=== PATIENT | female | born 1975 | race Caucasian/White ===

== ENCOUNTER → 2023-07-04 15:30 | Outpatient (BNVA) | payer BC, MEDICAID, SELFPAY | PROVIDERS: Family Provider Physician Assistant Medical; PCP Nurse Practitioner; Visit Provider Nurse Practitioner Family | DX: M79.672 Pain in left foot (principal); F32.9 Major depressive disorder, single episode, unspecified; Z30.09 Encounter for other general counseling and advice on contraception; Z79.899 Other long term (current) drug therapy | CPT/HCPCS: 73630; 80053; 85025 ==

== ENCOUNTER → 2023-08-07 14:34 | Outpatient (BNVA) | payer BC, MEDICAID, SELFPAY | PROVIDERS: Family Provider Physician Assistant Medical; PCP Nurse Practitioner; Visit Provider Nurse Practitioner Family | DX: R30.0 Dysuria (principal); N39.0 Urinary tract infection, site not specified | CPT/HCPCS: 81000 ==

== ENCOUNTER 2023-10-24 06:00 | Outpatient (CLI) | payer BC, MEDICAID, SELFPAY | END 2023-10-24 06:01 | disposition home or self-care (01) | LOC: RAD 11-07 07:32 | PROVIDERS: PCP Nurse Practitioner; Visit Provider Nurse Practitioner Family | DX: Z12.4 Encounter for screening for malignant neoplasm of cervix (principal); N89.8 Other specified noninflammatory disorders of vagina | CPT/HCPCS: 87070; 87205; 87624 ==

== ENCOUNTER → 2024-09-09 08:51 | Outpatient (BNVA) | payer BC, MEDICAID, SELFPAY | PROVIDERS: PCP Nurse Practitioner Family; Visit Provider Nurse Practitioner Family | DX: N39.0 Urinary tract infection, site not specified (principal) | CPT/HCPCS: 81003; 87086 ==

== ENCOUNTER → 2024-11-03 09:31 | Outpatient (BNVA) | payer BC, MEDICAID, SELFPAY | PROVIDERS: PCP Nurse Practitioner Family; Visit Provider Nurse Practitioner Family | DX: G56.02 Carpal tunnel syndrome, left upper limb (principal); Z79.899 Other long term (current) drug therapy; R63.4 Abnormal weight loss; Z13.6 Encounter for screening for cardiovascular disorders; E53.8 Deficiency of other specified B group vitamins; D64.9 Anemia, unspecified | CPT/HCPCS: 73110; 80053; 80061; 81003; 82306; 82607; 82728; 82746; 83036; 83550; 84439; 84443; 84481; 85025; 86376 ==

== ENCOUNTER → 2024-11-11 14:09 | Outpatient (BNVA) | payer BC, MEDICAID, SELFPAY | PROVIDERS: PCP Nurse Practitioner Family; Visit Provider Physician Assistant | DX: G56.02 Carpal tunnel syndrome, left upper limb (principal); G56.22 Lesion of ulnar nerve, left upper limb | CPT/HCPCS: 73130 ==